=== PATIENT | female | born 1995 | race Caucasian/White ===

== ENCOUNTER → 2018-12-08 | Outpatient (CLI) | payer OTHER ==
--- NOTE | 2018-12-08 10:10 | US ---
EXAMINATION TYPE: US abdomen limited DATE OF EXAM: 12/08/2018 COMPARISON: NONE CLINICAL HISTORY: R22.2 localized swelling/mass/lump trunk. 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 no vascularity noted. IMPRESSION: Isoechoic solid lesion somewhat indistinct on images saved etiology uncertain but favore d benign. The lesion can be better evaluated and characterized with MRI if desired.
== END | disposition home or self-care (01) ==
LOC: RADUSMAIN 09:20
PROVIDERS: ATTEND Family Medicine
DX: R22.2 Localized swelling, mass and lump, trunk (principal)
CPT/HCPCS: 76705